=== PATIENT | male | born 2000 | race African-American/Black ===

== ENCOUNTER 2020-12-24 19:20 | Emergency (ER) | payer OTHER ==
[~2020-12-24] VITALS: Ht 172.7 cm; Wt 68.0 kg
[2020-12-24 22:06] LABS: ABSOLUTE NEUTROPHILS 5.7 thou/uL (1.4-8.2); AMP/METHAMP Negative (Negative); BARBITURATES Negative (Negative); BASOPHILS 0.2 % (0.0-2.0); BENZODIAZEPINES Negative (Negative); CALCIUM 8.6 mg/dL (8.5-10.1); COCAINE Negative (Negative); CREATININE 0.8 mg/dL (0.7-1.3); EOSINOPHILS 0.5 % (0.0-3.0); HEMATOCRIT 45.5 % (42.0-52.0); HEMOGLOBIN 14.6 gm/dL (14.0-18.0); LYMPHOCYTES 25.6 % (24.0-44.0); MCH 25.6 pg (26.0-34.0); MCHC 32.1 g/dL (28.0-37.0); MCV 79.8 fL (80.0-100.0); METHADONE Negative (Negative); MONOCYTES 8.3 % (1.0-8.0); OPIATES Negative (Negative); PCP Negative (Negative); PLATELET COUNT 238 thou/uL (150-400); POLYS 65.4 % (36.0-66.0); RBC 5.71 mil/uL (4.50-6.00); SALICYLATE 5.6 mg/dL (2.8-20.0); WBC 8.8 thou/uL (4.0-11.0)
[2020-12-24 22:07] LABS: POTASSIUM 4.7 mmol/L (3.5-5.1)
[2020-12-25 21:35] VITALS: BP 122/75
== END 2020-12-25 21:40 ==
LOC: ER 19:20
PROVIDERS: Nurse Practitioner
DX: F99 Mental disorder, not otherwise specified (principal); F10.10 Alcohol abuse, uncomplicated; Z20.828 Contact with and (suspected) exposure to other viral communicable diseases; Y90.8 Blood alcohol level of 240 mg/100 ml or more